=== PATIENT | female | born 1945 | race Caucasian/White ===

== ENCOUNTER 2020-03-20 09:15 | Observation (INO) | payer OTHER ==
[~2020-03-20] VITALS: Ht 162.6 cm; Wt 75.0 kg
--- NOTE | 2020-03-20 09:15 | NUR ---
TO ROOM VIA EMS STRECTHER FO BEDSIDE TRIAGE
[2020-03-20 10:34] LABS: HEMATOCRIT 33.9 % (37.0-47.0); HEMOGLOBIN 10.4 g/dl (12.0-16.0); IMMATURE GRANULOCYTES 0.4 % (0.0-5.0); MEAN CELL VOLUME 90.9 fL CALC (80.0-100.0); MEAN CORPUSCULAR HGB 27.9 pG CALC (26.0-32.0); MEAN CORPUSCULAR HGB CONC 30.7 g/dL CAL (32.0-36.0); NEUT# 3.15 thou/uL (2.00-7.15); RED BLOOD COUNT 3.73 mill/uL (4.20-5.60); RED CELL DISTRI WIDTH 14.4 % (11.5-15.5)
--- NOTE | 2020-03-20 10:39 | NUR ---
PT RESTING AWARE OF PENDING ANKLE XRAY RELATED TO FALL YESTERDAY AND STATES CP RESOLVED AT THIS TIME
[2020-03-20 10:54] LABS: ALBUMIN 3.6 g/dL (3.2-5.0); ALKALINE PHOSPHATASE 102 u/l (38-126); ANION GAP 8 (6-22 (CALC)); BILIRUBIN, TOTAL 0.5 mg/dL (0.0-1.4); BUN 20 mg/dL (8-23); BUN/CREATININE RATIO 22 (12-20 (CALC)); CARBON DIOXIDE 26 mmol/l (22-30); CHLORIDE 106 mmol/l (95-108); CREATININE 0.9 mg/dL (0.5-1.0); GFR > 60 ML/MIN (>=60 (CALC)); GFR FOR AFR.AMER. > 60 ML/MIN (>=60 (CALC)); POTASSIUM 4.1 mmol/l (3.5-5.1); SGOT/AST 59 u/l (9-36); SODIUM 135 mmol/l (137-146); TOTAL PROTEIN 6.7 g/dL (6.3-8.2)
[2020-03-20 11:05] LABS: MYOGLOBIN 88 ng/mL (0 - 62)
--- NOTE | 2020-03-20 11:30 | NUR ---
Reassessment of patient completed. No distress noted.
[2020-03-20] MEDS ORDERED: LISINOPRIL20 MG PO (12:35)
[2020-03-20] MEDS ORDERED: CELEXA40 M1 PO (12:37)
[2020-03-20] MEDS ORDERED: MULTI VIT PO (12:38)
--- NOTE | 2020-03-20 12:41 | NUR ---
Reassessment of patient completed. No distress noted.
--- NOTE | 2020-03-20 12:41 | NUR ---
Reassessment of patient completed. No distress noted.
[2020-03-20] MEDS ORDERED: BENZTROPINE1 MG PO (12:42)
--- NOTE | 2020-03-20 13:15 | NUR ---
Reassessment of patient completed. No distress noted.
[2020-03-20] MEDS ORDERED: LIPITOR80 M1 PO (14:07)
[2020-03-20] MEDS ORDERED: GABAPENTIN100 MG PO (14:07)
--- NOTE | 2020-03-20 14:33 | NUR ---
ATTEMPTED TO CALL REPORT WAS TOLD THEY WOULD CALL BACK
--- NOTE | 2020-03-20 15:16 | NUR ---
REPORT TO NINO COFFMAN
[2020-03-20 15:30] VITALS: BP 153/76
--- NOTE | 2020-03-20 15:30 | NUR ---
PATIENT ARRIVED TO ROOM ON STRETCHER AT THIS TIME ALERT AND ORIENTED DENIES ANY PAIN. ORIENTED TO ROOM AND TO SURROUNDINGS AT THIS TIME. IV PATENT TELE MONITOR IN PLACE CALL LIGHT WITHIN REACH. SIDERAILS UP X 2. PATIENT HAS DALIA BRACE ON LEFT ANKLE DUE TO A FALL AT HOME. PATIENT HAS A LEFT ABRASION ON LEFT ELBOW DUE TO FALL AT HOME. PATIENT VERBALIZES UNDERSTANDING OF ASKING FOR HELP.
--- NOTE | 2020-03-20 16:15 | NUR ---
PHYSICAL THEARPY IN TO SEE PATIENT TO INSTURCT PATIENT ON HOW TO USE A CANE AND WALKER TO PREVENT FALLS. PATIENT VERBALIZED UNDERSTANDING
--- NOTE | 2020-03-20 19:00 | NUR ---
RECEIVED SHIFT CHANGE REPORT FROM JERRI. COFFMAN. ASSUMED CARE OF PATIENT.
[2020-03-20 19:30] VITALS: BP 132/63
--- NOTE | 2020-03-21 | NUR ---
PT LAYING IN BED SLEEPING, NO S/SX OF DISTRESS OR DISCOMFORT OBSERVED. WILL CONTINUE TO MONITOR.
[2020-03-21 00:23] VITALS: BP 124/64
[2020-03-21 03:58] VITALS: BP 100/46
--- NOTE | 2020-03-21 06:26 | NUR ---
PATIENT IS LAYING IN BED SLEPPING. NO S/SX OF DISTRESS OR DISCOMFORT OBSERVED AT THIS TIME.
[2020-03-21 06:54] LABS: HEMATOCRIT 34.5 % (37.0-47.0); HEMOGLOBIN 10.5 g/dl (12.0-16.0); IMMATURE GRANULOCYTES 0.3 % (0.0-5.0); MEAN CELL VOLUME 89.6 fL CALC (80.0-100.0); MEAN CORPUSCULAR HGB 27.3 pG CALC (26.0-32.0); MEAN CORPUSCULAR HGB CONC 30.4 g/dL CAL (32.0-36.0); NEUT# 2.21 thou/uL (2.00-7.15); RED BLOOD COUNT 3.85 mill/uL (4.20-5.60); RED CELL DISTRI WIDTH 14.6 % (11.5-15.5)
[2020-03-21 07:27] LABS: ALBUMIN 3.6 g/dL (3.2-5.0); ALKALINE PHOSPHATASE 101 u/l (38-126); ANION GAP 9 (6-22 (CALC)); BILIRUBIN, TOTAL 0.4 mg/dL (0.0-1.4); BUN 18 mg/dL (8-23); BUN/CREATININE RATIO 19 (12-20 (CALC)); CALCULATED LDLCHOLESTEROL 85 mg/dL (62-129 (CALC)); CARBON DIOXIDE 25 mmol/l (22-30); CHLORIDE 106 mmol/l (95-108); CHOLESTEROL HDL RATIO 3.3 (<4.4 (CALC)); CREATININE 0.9 mg/dL (0.5-1.0); GFR > 60 ML/MIN (>=60 (CALC)); GFR FOR AFR.AMER. > 60 ML/MIN (>=60 (CALC)); HDL CHOLESTEROL 53 mg/dL (>=40); MAGNESIUM 1.8 mg/dL (1.6-2.3); POTASSIUM 4.7 mmol/l (3.5-5.1); SGOT/AST 68 u/l (9-36); SODIUM 136 mmol/l (137-146); TOTAL CHOLESTEROL 172 mg/dl (0-199); TOTAL PROTEIN 6.7 g/dL (6.3-8.2); TOTAL TRIGLYCERIDES 171 mg/dl (30-149); VLDL CHOLESTROL 34 mg/dl (0-48 (CALC))
[2020-03-21 07:54] VITALS: BP 122/66
--- NOTE | 2020-03-21 09:00 | NUR ---
PT IS ALERT AND ORIENTED X 3. LUNGS CLEAR, RA. AMBULATORY IN ROOM. PT DENIES CHEST PAIN AT THIS TIME. NEGATIVE ASSESSMENT.
[2020-03-21] MEDS ORDERED: ASPIRIN CHEWABL81 MG PO (09:57)
[2020-03-21] MEDS ORDERED: NITROGLYCER0.4 MG SL (09:58)
[2020-03-21 10:30] VITALS: BP 140/64
--- NOTE | 2020-03-21 11:50 | NUR ---
PT HAS BEEN DISCHARGED TO HOME AFTER BEING SEEN BY DR PEREA THIS MORNING. PT VERBALIZED UNDERSTANDING OF DC INSTRUCTIONS, TAKEN BY WHEELCHAIR TO LOBBY IN STABLE CONDITION.
== END 2020-03-21 12:06 | disposition home or self-care (01) | DRG 313 ==
LOC: ED 09:15 → ED-I 11:42 → ED 11:58 → MS2 11:59
PROVIDERS: Family Medicine; Nurse Practitioner; ADMIT Internal Medicine; ATTEND Internal Medicine
DX: R07.9 Chest pain, unspecified (principal); I10 Essential (primary) hypertension; E11.40 Type 2 diabetes mellitus with diabetic neuropathy, unspecified; M25.572 Pain in left ankle and joints of left foot; M77.32 Calcaneal spur, left foot; E78.5 Hyperlipidemia, unspecified; F41.9 Anxiety disorder, unspecified; F32.9 Major depressive disorder, single episode, unspecified; W19.XXXA Unspecified fall, initial encounter; Z20.822 Contact with and (suspected) exposure to COVID-19
CPT/HCPCS: G0378; J1650